=== PATIENT | male | born 1990 | race Caucasian/White ===

== ENCOUNTER 2021-11-22 14:09 | Inpatient (IN) | payer OTHER ==
[2021-11-22 16:59] VITALS: BMI 28.0
[2021-11-22] MEDS ORDERED: ACETAMINOPHEN 325 MG TABLET (FP) PO PRN ×2 (17:58)
[2021-11-22] MEDS ORDERED: MAGNESIUM CITRATE 300 ML BOTTLE PO PRN (17:58)
[2021-11-22] MEDS ORDERED: IBUPROFEN 600 MG TABLET (FP) PO PRN (17:58)
[2021-11-22] MEDS ORDERED: guaiFENesin 200 MG/10 ML 10 ML UNIT-DOSE CUPS PO PRN (17:58)
[2021-11-22] MEDS ORDERED: IBUPROFEN 400 MG TABLET (FP) PO PRN (17:58)
[2021-11-22] MEDS ORDERED: BENZOCAINE/MENTHOL (CHLORASEPTIC ) LOZENGE MM PRN (17:58)
[2021-11-22] MEDS ORDERED: NICOTINE POLACRILEX 2 MG GUM BUC PRN (17:58)
[2021-11-22] MEDS ORDERED: BISMUTH SUBSALICYLATE 524 MG/30 ML PO PRN (17:58)
[2021-11-22] MEDS ORDERED: P-EPHED 60MG/TRIPROLIDI 2.5MG TABLET PO PRN (17:58)
[2021-11-22] MEDS ORDERED: ONDANSETRON *ODT* 4 MG TABLET SL PRN (17:58)
[2021-11-22] MEDS ORDERED: DICYCLOMINE HCL 10 MG CAPSULE PO PRN (17:58)
[2021-11-22] MEDS ORDERED: MAG HYDROX/AL HYDROX/SIMETH 30 ML UNIT-DOSE CUP PO PRN (17:58)
[2021-11-22] MEDS ORDERED: LOPERAMIDE HCL 2 MG CAPSULE PO PRN (17:58)
[2021-11-22] MEDS ORDERED: MAGNESIUM HYDROX 2400MG/30ML ORAL SUSPENSION 30 ML CUP PO PRN (17:58)
[2021-11-22] MEDS ORDERED: NICOTINE 10 MG CARTRIDGE (INHALER) IH PRN (17:58)
[2021-11-22] MEDS: diazePAM 5 MG TABLET PO PRN (19:38)
[2021-11-22] MEDS: MELATONIN 5 MG TABLETS PO SCH (22:32)
[2021-11-22] MEDS: THIAMINE HCL 100 MG TABLET (FP) PO SCH (22:32)
[2021-11-22] MEDS: hydrOXYzine PAMOATE 25 MG CAPSULE (FP) PO PRN (22:33)
[2021-11-23] MEDS: diazePAM 5 MG TABLET PO PRN (08:05)
[2021-11-23] MEDS ORDERED: methaDONE HCL 10 MG TABLET PO ONE (08:41)
[2021-11-23] MEDS ORDERED: diazePAM 5 MG TABLET PO PRN (09:23)
[2021-11-23] MEDS ORDERED: methaDONE HCL 10 MG TABLET ONE (09:30)
[2021-11-23] MEDS ORDERED: methaDONE HCL 40 MG DISPERSABLE TABLET ONE (09:31)
[2021-11-23] MEDS: PRENATAL VITAMINS W/ FOLIC ACID TABLET (FP) PO SCH (10:14)
[2021-11-23] MEDS: METHOCARBAMOL 500 MG TABLET PO PRN ×2 (10:15→18:14)
[2021-11-23] MEDS: diazePAM 5 MG TABLET PO SCH ×3 (10:15→23:00)
[2021-11-23] MEDS: hydrOXYzine PAMOATE 25 MG CAPSULE (FP) PO PRN ×2 (18:10→22:39)
[2021-11-23] MEDS: MELATONIN 5 MG TABLETS PO SCH (22:38)
[2021-11-23] MEDS: THIAMINE HCL 100 MG TABLET (FP) PO SCH (22:39)
[2021-11-23] MEDS: diazePAM 5 MG TABLET PO ONE (22:39)
[2021-11-24] MEDS: diazePAM 5 MG TABLET PO SCH ×4 (05:18→22:25)
[2021-11-24] MEDS ORDERED: methaDONE HCL 40 MG DISPERSABLE TABLET ONE (05:18)
[2021-11-24] MEDS ORDERED: methaDONE HCL 10 MG TABLET ONE (05:18)
[2021-11-24] MEDS ORDERED: methaDONE HCL 10 MG TABLET PO SCH (06:00)
[2021-11-24] MEDS: PRENATAL VITAMINS W/ FOLIC ACID TABLET (FP) PO SCH (10:21)
[2021-11-24] MEDS: MELATONIN 5 MG TABLETS PO SCH (22:25)
[2021-11-24] MEDS: hydrOXYzine PAMOATE 25 MG CAPSULE (FP) PO PRN (22:25)
[2021-11-24] MEDS: THIAMINE HCL 100 MG TABLET (FP) PO SCH (22:25)
[2021-11-24] MEDS: METHOCARBAMOL 500 MG TABLET PO PRN (22:27)
[2021-11-25] MEDS ORDERED: methaDONE HCL 10 MG TABLET ONE (03:14)
[2021-11-25] MEDS ORDERED: methaDONE HCL 40 MG DISPERSABLE TABLET ONE (03:14)
[2021-11-25] MEDS: diazePAM 5 MG TABLET PO SCH ×3 (05:39→22:35)
[2021-11-25] MEDS: PRENATAL VITAMINS W/ FOLIC ACID TABLET (FP) PO SCH (10:25)
[2021-11-25] MEDS: hydrOXYzine PAMOATE 25 MG CAPSULE (FP) PO PRN (10:25)
[2021-11-25] MEDS: diazePAM 5 MG TABLET PO PRN (10:25)
[2021-11-25] MEDS: METHOCARBAMOL 500 MG TABLET PO PRN (10:26)
[2021-11-25] MEDS: MELATONIN 5 MG TABLETS PO SCH (22:34)
[2021-11-25] MEDS: THIAMINE HCL 100 MG TABLET (FP) PO SCH (22:34)
[2021-11-26] MEDS ORDERED: methaDONE HCL 10 MG TABLET ONE (04:53)
[2021-11-26] MEDS ORDERED: methaDONE HCL 40 MG DISPERSABLE TABLET ONE (04:54)
[2021-11-26] MEDS: diazePAM 5 MG TABLET PO SCH ×2 (05:35→17:40)
[2021-11-26] MEDS: hydrOXYzine PAMOATE 25 MG CAPSULE (FP) PO PRN (10:36)
[2021-11-26] MEDS: PRENATAL VITAMINS W/ FOLIC ACID TABLET (FP) PO SCH (10:36)
[2021-11-26] MEDS: METHOCARBAMOL 500 MG TABLET PO PRN ×3 (10:37→22:21)
[2021-11-26] MEDS: THIAMINE HCL 100 MG TABLET (FP) PO SCH (22:20)
[2021-11-26] MEDS: MELATONIN 5 MG TABLETS PO SCH (22:20)
[2021-11-27] MEDS ORDERED: methaDONE HCL 40 MG DISPERSABLE TABLET ONE (04:19)
[2021-11-27] MEDS ORDERED: methaDONE HCL 10 MG TABLET ONE (04:19)
[2021-11-27] MEDS: hydrOXYzine PAMOATE 25 MG CAPSULE (FP) PO PRN (05:20)
[2021-11-27] MEDS: diazePAM 5 MG TABLET PO ONE (05:21)
[2021-11-27 09:03] VITALS: BP 107/65; PULSE 55; TEMP 97.3
[2021-11-27] MEDS: PRENATAL VITAMINS W/ FOLIC ACID TABLET (FP) PO SCH (09:25)
== END 2021-11-27 10:36 | disposition home or self-care (01) | DRG 773 ==
LOC: YASAS 14:09 → Y6N 19:09
PROVIDERS: ADMIT Allergy & Immunology; ATTEND Surgery
PROC: HZ2ZZZZ Detoxification Services for Substance Abuse Treatment (ICD-10-PCS; principal; 2021-11-22)
DX: F13.230 Sedative, hypnotic or anxiolytic dependence with withdrawal, uncomplicated (principal); F11.20 Opioid dependence, uncomplicated; F14.20 Cocaine dependence, uncomplicated; F17.210 Nicotine dependence, cigarettes, uncomplicated; F19.280 Other psychoactive substance dependence with psychoactive substance-induced anxiety disorder; F19.282 Other psychoactive substance dependence with psychoactive substance-induced sleep disorder; F43.10 Post-traumatic stress disorder, unspecified; Z87.828 Personal history of other (healed) physical injury and trauma; Z89.112 Acquired absence of left hand; Z89.022 Acquired absence of left finger(s)
CPT/HCPCS: C9803-CS; U0003; U0005